=== PATIENT | male | born 1945 | race Caucasian/White ===

== ENCOUNTER → 2018-03-23 08:03 | Outpatient (CLI) | payer MEDICARE, OTHER, SELFPAY ==
--- NOTE | 2018-03-23 08:06 | DI.MRI.S_ITS ---
PROCEDURE: MR LUMBAR SPINE WO CON INDICATIONS: Lumbosacral spondylosis with right lower extremity radicular TECHNIQUE: Noncontrast sagittal T1 spin echo and T2 fast echo, sagittal STIR, axial T1 and T2 fast spin echo through the lumbar spine. In cases with scoliosis, additional coronal T2 fast spin echo may be performed. COMPARISON: [facility], CR, XR LUMBAR SPINE MIN 4V, 03/23/2018, 7:48. FINDINGS: Image quality: Excellent. Alignment and Curvature: There is minimal retrolisthesis at L1-L2 and mild retrolisthesis at L2-L3. Minimal retrolisthesis is seen at L3-L4. Bone Marrow: Marrow is of normal overall signal. No acute vertebral body compression fractures. Spinal Cord: Conus medullaris terminates at the T12-L1 level. Visualized cord demonstrates normal signal and size. Paraspinous Soft Tissues: No paravertebral masses. Left renal cysts are partially visualized. T12-L1: Normal appearance. L1-L2: The disc height is well-preserved. Loss of disc signal is seen at this level. Mild to moderate disc bulge is seen. There is moderate left-sided and minimal right-sided neural foraminal narrowing seen. Mild central canal narrowing is seen. L2-L3: Moderate loss of disc height is seen. Loss of disc signal is seen. Moderate disc bulge is seen. There is moderate left-sided and moderate to severe right-sided neural foraminal narrowing seen. There is a mild degree of mass effect seen upon the exiting right L2 nerve root. Moderate central canal narrowing is seen. L3-L4: Mild loss of disc height is seen. Loss of disc signal is seen. Moderate generalized disc bulge is seen. Mild facet joint hypertrophy is seen. There is at least moderate right-sided and moderate to severe left-sided neural narrowing seen. A degree of impingement can be seen upon the exiting left L3 nerve root. Moderate central canal narrowing is seen. L4-L5: Moderate loss of disc height is seen. Loss of disc signal is seen. Moderate disc bulge is seen, which is eccentric to the right. Moderate facet joint hypertrophy is seen. There is moderate left-sided and moderate to severe right-sided neural foraminal narrowing seen. There is impingement upon the exiting right L4 nerve root. Moderate central canal narrowing is seen. L5-S1: The disc height is well-preserved. Mild loss of disc signal is seen. Minimal disc bulge is seen. No significant neural foraminal or central canal narrowing are seen. IMPRESSION: Lumbar spine degenerative changes are seen, which are most prominent at the L2-L3 and L4-L5 levels. Dictated by: Houston Molina M.D. on 03/23/2018 at 9:23 Approved by: Houston Molina M.D. on 03/23/2018 at 9:29
--- NOTE | 2018-03-23 08:06 | DI.RAD.S_ITS ---
PROCEDURE: XR LUMBAR SPINE MIN 4V INDICATIONS: Lumbosacral spondylosis with right lower extremity radicular TECHNIQUE: 5 views of the lumbar spine were acquired. COMPARISON: None. FINDINGS: Bones: 5 nonrib-bearing vertebrae are present. There is grade I L1 on L2, L2 on L3, and L3 on L4 retrolisthesis. There is trace anterolisthesis of L4-5. There is diffuse intervertebral disc space narrowing, endplate sclerosis, osteophytosis, and facet sclerosis of the lumbar spine. No wedge compression deformities. Soft tissues: Overlying bowel gas pattern is normal. No suspicious soft tissue calcifications. Oblique images: No pars defects. IMPRESSION: Moderate to severe degenerative change. Multilevel spondylolisthesis. No spondylolysis. Dictated by: Myrna Ghotra M.D. on 03/23/2018 at 9:42 Approved by: Myrna Ghotra M.D. on 03/23/2018 at 9:43
== END ==
PROVIDERS: Family Provider Family Medicine; PCP Family Medicine; Visit Provider Physical Medicine & Rehabilitation
DX: M47.27 Other spondylosis with radiculopathy, lumbosacral region (principal); M51.16 Intervertebral disc disorders with radiculopathy, lumbar region; M43.15 Spondylolisthesis, thoracolumbar region; M43.16 Spondylolisthesis, lumbar region; Z96.651 Presence of right artificial knee joint
CPT/HCPCS: 72110; 72148

== ENCOUNTER → 2022-06-05 12:33 | Outpatient (CLI) | payer MEDICARE, OTHER, SELFPAY ==
[2022-06-05 14:26] LABS: Add Manual Diff / Slide Review NO; Basophils Absolute Auto 0 /uL (0-100); Basophils Percent Auto 0.5 % (0-2); Eosinophils Absolute Auto 100 /uL (0-450); Eosinophils Percent Auto 1.8 % (2-4); Hematocrit 43.9 % (41-53); Hemoglobin 14.7 g/dL (13.5-17.5); Lymphocytes Absolute Auto 1600 /uL (1100-4500); Mean Corpuscular HGB Conc 33.5 % (30-36); Mean Corpuscular Hemoglobin 31.9 PG (26-34); Mean Corpuscular Volume 95.4 fL (80-100); Monocytes Absolute Auto 600 /uL (0-900); Monocytes Percent Auto 8.9 % (3-14); Neutrophils Absolute Auto 4800 /uL (1500-7000); Neutrophils Percent Auto 66.8 % (50-75); Platelet Count 214 X10^3/uL (150-400); Red Cell Distribution Width 15.5 % (11.6-14.8); White Blood Cell Count 7.2 X10^3/uL (4.5-11.0)
[2022-06-05 14:59] LABS: Alanine Aminotransferase 28 IU/L (<50); Albumin 3.6 g/dL (3.5-5.0); Albumin Globulin Ratio 1.2 (1.0-2.8); Alkaline Phosphatase 52 U/L (38-126); Aspartate Aminotransferase 40 IU/L (17-59); BUN Creatinine Ratio 19.5 (6-22); Bilirubin Total 0.4 mg/dL (0.2-1.3); Blood Urea Nitrogen 25 mg/dL (9-20); Calcium 9.1 mg/dL (8.4-10.2); Carbon Dioxide 27 mmol/L (22-32); Chloride 102 mmol/L (98-107); Cholesterol 212 mg/dL (140-199); Estimated Glomerular Filt Rate 58 mL/min (>60); Globulin 3.1 g/dL (1.7-4.1); Glucose 90 mg/dL (80-110); HEMOLYSIS < 15 (0-50); Potassium 4.7 mmol/L (3.4-5.1); Sodium 137 mmol/L (137-145); Total Protein 6.7 g/dL (6.3-8.2); Triglycerides 75 mg/dL (35-150); Uric Acid 5.8 mg/dL (3.5-8.5)
[2022-06-05 15:09] LABS: HDL Cholesterol 118 mg/dL (40-60); LDL Cholesterol Calculated 79 mg/dL (<100)
[2022-06-05 15:29] LABS: Prostate Specific Antigen Scrn 2.39 ng/mL (0.1-4.0)
== END ==
PROVIDERS: Family Provider Family Medicine; PCP Family Medicine; Referring Provider Family Medicine; Visit Provider Family Medicine
DX: Z00.00 Encounter for general adult medical examination without abnormal findings (principal); M10.9 Gout, unspecified; N40.0 Benign prostatic hyperplasia without lower urinary tract symptoms; Z12.5 Encounter for screening for malignant neoplasm of prostate; Z13.6 Encounter for screening for cardiovascular disorders; E78.5 Hyperlipidemia, unspecified
CPT/HCPCS: 36415; 80053; 80061; 84443; 84550; 85025; G0103

== ENCOUNTER → 2022-11-20 08:42 | Outpatient (CLI) | payer MEDICARE, OTHER, SELFPAY ==
[2022-11-20 09:59] LABS: Alanine Aminotransferase 34 IU/L (<50); Albumin 3.9 g/dL (3.5-5.0); Albumin Globulin Ratio 1.2 (1.0-2.8); Alkaline Phosphatase 49 U/L (38-126); Aspartate Aminotransferase 46 IU/L (17-59); BUN Creatinine Ratio 17.5 (6-22); Bilirubin Total 0.8 mg/dL (0.2-1.3); Blood Urea Nitrogen 21 mg/dL (9-20); Calcium 8.7 mg/dL (8.4-10.2); Carbon Dioxide 29 mmol/L (22-32); Chloride 103 mmol/L (98-107); Estimated Glomerular Filt Rate > 60 mL/min (>60); Globulin 3.3 g/dL (1.7-4.1); Glucose 108 mg/dL (80-110); HEMOLYSIS 15 (0-50); Potassium 4.7 mmol/L (3.4-5.1); Sodium 136 mmol/L (137-145); Total Protein 7.2 g/dL (6.3-8.2); Uric Acid 5.5 mg/dL (3.5-8.5)
== END ==
PROVIDERS: Family Provider Family Medicine; PCP Family Medicine; Referring Provider Family Medicine; Visit Provider Family Medicine
DX: M1A.0790 Idiopathic chronic gout, unspecified ankle and foot, without tophus (tophi) (principal); N18.2 Chronic kidney disease, stage 2 (mild)
CPT/HCPCS: 36415; 80053; 84550

== ENCOUNTER → 2023-06-29 10:26 | Outpatient (CLI) | payer MEDICARE, OTHER, SELFPAY ==
[2023-06-29 11:01] LABS: Add Manual Diff / Slide Review NO; Basophils Absolute Auto 0 /uL (0-100); Basophils Percent Auto 0.3 % (0-2); Eosinophils Absolute Auto 200 /uL (0-450); Eosinophils Percent Auto 2.1 % (2-4); Hematocrit 45.6 % (41-53); Hemoglobin 15.4 g/dL (13.5-17.5); Lymphocytes Absolute Auto 1600 /uL (1100-4500); Lymphocytes Percent Auto 18.1 % (25-40); Mean Corpuscular HGB Conc 33.8 % (30-36); Mean Corpuscular Hemoglobin 32.6 PG (26-34); Mean Corpuscular Volume 96.4 fL (80-100); Monocytes Absolute Auto 600 /uL (0-900); Monocytes Percent Auto 7.1 % (3-14); Neutrophils Absolute Auto 6400 /uL (1500-7000); Neutrophils Percent Auto 72.4 % (50-75); Platelet Count 210 X10^3/uL (150-400); Red Blood Cell Count 4.73 X10^6/uL (4.5-5.9); Red Cell Distribution Width 15.2 % (11.6-14.8); White Blood Cell Count 8.8 X10^3/uL (4.5-11.0)
[2023-06-29 11:41] LABS: Alanine Aminotransferase 33 IU/L (<50); Albumin 3.9 g/dL (3.5-5.0); Albumin Globulin Ratio 1.1 (1.0-2.8); Alkaline Phosphatase 53 U/L (38-126); Aspartate Aminotransferase 42 IU/L (17-59); BUN Creatinine Ratio 16.2 (6-22); Bilirubin Total 0.6 mg/dL (0.2-1.3); Blood Urea Nitrogen 22 mg/dL (9-20); Calcium 9.7 mg/dL (8.4-10.2); Carbon Dioxide 27 mmol/L (22-32); Chloride 101 mmol/L (98-107); Cholesterol 227 mg/dL (140-199); Estimated Glomerular Filt Rate 54 mL/min (>60); Globulin 3.6 g/dL (1.7-4.1); Glucose 108 mg/dL (80-110); HDL Cholesterol 98 mg/dL (40-60); HEMOLYSIS < 15 (0-50); LDL Cholesterol Calculated 105 mg/dL (<100); Potassium 4.5 mmol/L (3.4-5.1); Sodium 135 mmol/L (137-145); Total Protein 7.5 g/dL (6.3-8.2); Triglycerides 120 mg/dL (35-150); Uric Acid 5.4 mg/dL (3.5-8.5)
[2023-06-29 12:09] LABS: Prostate Specific Antigen Scrn 2.98 ng/mL (0.1-4.0)
[2023-06-29 12:10] LABS: TSH w/ Reflex to FT4 3.59 uIU/mL (0.47-4.68)
== END ==
PROVIDERS: Family Provider Family Medicine; PCP Family Medicine; Referring Provider Family Medicine; Visit Provider Family Medicine
DX: Z00.00 Encounter for general adult medical examination without abnormal findings (principal); M1A.0790 Idiopathic chronic gout, unspecified ankle and foot, without tophus (tophi); N18.9 Chronic kidney disease, unspecified; Z12.5 Encounter for screening for malignant neoplasm of prostate; N13.8 Other obstructive and reflux uropathy; N40.1 Benign prostatic hyperplasia with lower urinary tract symptoms; N18.2 Chronic kidney disease, stage 2 (mild); Z96.651 Presence of right artificial knee joint; M10.9 Gout, unspecified; N40.0 Benign prostatic hyperplasia without lower urinary tract symptoms
CPT/HCPCS: 36415; 80053; 80061; 84443; 84550; 85025; G0103

== ENCOUNTER → 2023-10-12 08:00 | Outpatient (CLI) | payer MEDICARE, SELFPAY ==
--- NOTE | 2023-10-12 08:02 | DI.RAD.S_ITS ---
PROCEDURE: XR LUMBAR SPINE MIN 4V INDICATIONS: low back pain TECHNIQUE: 5 views of the lumbar spine were acquired, including bilateral oblique views. COMPARISON: MR, MR LUMBAR SPINE WO CON, 03/23/2018, 8:34. [facility], CR, XR LUMBAR SPINE MIN 4V, 03/23/2018, 7:48. FINDINGS: Bones: 5 nonrib-bearing vertebrae are present. There is moderate levoscoliosis with the apex at L4. Grade 1 retrolisthesis of L2 on L3. No vertebral body compression fractures. No suspicious bony lesions. Multilevel degenerative disc disease, moderate to severe at L2-L3, L3-L4 and L4-L5. Mild at T12-L1 and L1-L2. Severe facet arthropathy at L2-L3, L3-L4 and L4-L5 and L5-S1. Soft tissues: Overlying bowel gas pattern is normal. Vascular calcifications consistent with atherosclerosis. Oblique images: No pars defects. IMPRESSION: 1. [id number] degenerative disc and facet disease in lumbar spine. 2. Scoliosis. 3. Grade 1 retrolisthesis of L2 on L3. 4. No pars defects. Dictated by: Kylie Myers M.D. on 10/12/2023 at 16:09 Approved by: Kylie Myers M.D. on 10/12/2023 at 16:11
--- NOTE | 2023-10-12 08:02 | DI.RAD.S_ITS ---
PROCEDURE: XR HIP W PEL IF DONE LT 2V INDICATIONS: left hip pain TECHNIQUE: AP pelvis with lateral view(s) of the left hip(s). COMPARISON: None. FINDINGS: Bones: No fractures or dislocations. Pelvic ring appears intact. No suspicious bony lesions. Mild degenerative joint disease in hips and sacroiliac joints bilaterally. Soft tissues: The visualized bowel gas pattern is normal. No suspicious soft tissue calcifications. IMPRESSION: Mild degenerative joint disease. Dictated by: Kylie Myers M.D. on 10/12/2023 at 16:21 Approved by: Kylie Myers M.D. on 10/12/2023 at 16:22
== END ==
PROVIDERS: Family Provider Family Medicine; PCP Family Medicine; Referring Provider Anesthesiology; Visit Provider Anesthesiology
DX: M16.0 Bilateral primary osteoarthritis of hip (principal); M46.1 Sacroiliitis, not elsewhere classified; M70.62 Trochanteric bursitis, left hip; M25.552 Pain in left hip; M48.061 Spinal stenosis, lumbar region without neurogenic claudication; M51.16 Intervertebral disc disorders with radiculopathy, lumbar region; M51.17 Intervertebral disc disorders with radiculopathy, lumbosacral region; M47.26 Other spondylosis with radiculopathy, lumbar region; M47.27 Other spondylosis with radiculopathy, lumbosacral region; M43.16 Spondylolisthesis, lumbar region; M41.26 Other idiopathic scoliosis, lumbar region
CPT/HCPCS: 72110; 73502; 99214

== ENCOUNTER → 2023-11-13 16:14 | Outpatient (CLI) | payer MEDICARE, SELFPAY ==
--- NOTE | 2023-11-13 16:15 | DI.MRI.S_ITS ---
PROCEDURE: MR LUMBAR SPINE WO CON INDICATIONS: lumbar stenosis TECHNIQUE: Noncontrast sagittal T1 spin echo and T2 fast echo, sagittal STIR, and T2 fast spin echo through the lumbar spine. In cases with scoliosis, additional coronal T2 fast spin echo may be performed. COMPARISON: [facility], MR, MR LUMBAR SPINE WO CON, 03/23/2018, 8:34. FINDINGS: Image quality: Excellent. Alignment and Curvature: Mild dextroscoliosis of the lumbar spine, centered at L2-3. Mild retrolisthesis L1 on L2, L2-L3 and L3-L4. Grade 1 anterolisthesis of L4 on L5. Bone Marrow: Multilevel fibrofatty endplate change. Mild fibrovascular end plate change at L1-2 and L2-3. Spinal Cord: Conus medullaris terminates at the L1 level. Visualized cord demonstrates normal signal and size. Paraspinous Soft Tissues: No paravertebral masses. T12-L1: Unremarkable L1-2: Disc bulge. Mild bilateral facet arthropathy. Mild central canal stenosis. No neural from stenosis was not L2-3: Disc bulge. Mild bilateral facet arthropathy. Mild central canal stenosis. Mild right and left neural stenosis. L3-4: Disc bulge. Mild bilateral facet arthropathy. Mild central canal stenosis. Moderate left neural from stenosis. No right neural stenosis. L4-5: Disc bulge. Moderate right, mild left facet arthropathy. Moderate central canal stenosis. Moderate right neural foraminal stenosis. No left neural foraminal stenosis. L5-S1: No central canal stenosis. No neural foraminal stenosis. Visualized sacrum is unremarkable. No abdominal aortic aneurysm. Left renal cysts. IMPRESSION: Multilevel degenerative changes of the lumbar spine, most pronounced at L4-5, where there is moderate central canal stenosis and moderate right neural from stenosis, grossly unchanged from prior exam. Dictated by: Sarah Stanton M.D. on 11/13/2023 at 17:03 Approved by: Sarah Stanton M.D. on 11/13/2023 at 17:14
== END ==
PROVIDERS: Family Provider Family Medicine; PCP Family Medicine; Referring Provider Physical Medicine & Rehabilitation; Visit Provider Physical Medicine & Rehabilitation
DX: M47.816 Spondylosis without myelopathy or radiculopathy, lumbar region (principal); M48.061 Spinal stenosis, lumbar region without neurogenic claudication
CPT/HCPCS: 72148

== ENCOUNTER 2023-12-15 09:32 | Outpatient (CLI) | payer MEDICARE, SELFPAY ==
[2023-12-15] VITALS (9 sets, daily range): BP systolic 110–139; BP diastolic 57–65; PULSE 50–62; RESP 14–21; TEMP 36.2; O2SAT 95–99
--- NOTE | 2023-12-15 10:15 | DI.RAD.S_ITS ---
PROCEDURE: PAIN L INTERLAMINAR/CAUDAL INJ INDICATIONS: L4-5 translaminar TJ COMPARISON: None. FINDINGS: Fluoroscopic spot filming was performed to verify placement of spinal needles at the L4-5 level(s), as labeled on the films. Appropriate location(s) of the needle tip(s) was confirmed by injection of iodinated contrast. IMPRESSION: Fluoroscopic guidance utilized for an epidural injection at L4-5. Dictated by: Gato Rodriguez M.D. on 12/15/2023 at 12:14 Approved by: Gato Rodriguez M.D. on 12/15/2023 at 12:14
[2023-12-15] MEDS: MIDAZOLAM 2 MG/2 ML VIAL 1 MG IV ×2 (10:39→10:44)
[2023-12-15] MEDS: BUPIVACAINE 0.25% (PF) VIAL 2 ML INJ (10:43)
[2023-12-15] MEDS: iopamidoL 15 ML VIAL 3 ML INJ (10:43)
[2023-12-15] MEDS: BETAMETHASONE 30 MG/5 ML MDV 6 MG INJ (10:44)
[2023-12-15] MEDS: DEXAMETHASONE 10 MG/ML VIAL INJ (10:44)
--- NOTE | 2023-12-15 10:54 | P.PCN_ITS ---
Date/Time/Diagnoses Date of procedure: 12/15/23 Time of procedure: 10:54 Pre-procedure diagnosis: 1. HNP WITH RADICULAR FEATURES, 2. MULTILEVEL CENTRAL STENOSIS, Post-procedure diagnosis: same Procedure Notes Procedure: 1. FLUOROSCOPICALLY GUIDED CONTRAST CONTROLLED INTERLAMINAR EPIDURAL STEROID INJECTION -L4/5 Indications: Yony is referred by Dr. Chung for treatment of Bilateral Foraminal Stenosis R>L LE symptoms. Physician: Maury Hodgson Total Fluoroscopy time (seconds): 8 Total sedation minutes: 10 Complications: none Procedure in detail & Post-procedure care: FINDINGS Multilevel Central Spinal Stenosis with Nerve Root Compression DESCRIPTION OF PROCEDURE Fluoroscopically guided, contrast-controlled L4/5 translaminar epidural steroid injection. Following review of allergy and review of potential side effects and complications, including, but not necessarily limited to, infection, allergic reaction, local tissue breakdown, temporary as well as permanent nerve injury, paralysis, stroke and possible , the patient indicated that the patient understood and agreed to proceed. An informed consent document was signed by the patient, witnessed by a nurse, and placed in the patient's chart. Additionally, other treatment options including modalities, medications, and physical therapy were reviewed with the patient. After review of previous anaesthesic history and IV conscious sedation the patient was deemed safe to proceed with today?s procedure with IV conscious sedation as ASA class II designation. Safety time-out was performed to confirm patient ID, procedure to be performed and site of procedure. IV sedation was accomplished with a combination of 2mg of Versed was administered by the RN after DO order, titrated to patient comfort during the course of the procedure while the patient remained responsive to all verbal commands In the prone position, following sterile prep and drape of the lumbar region, the L4/5 translaminar space was identified fluoroscopically. The skin was anesthetized via a 25-gauge, 1.5inch needle with 1% lidocaine solution. At this point, a 22-gauge short bevel spinal needle was atraumatically introduced and advanced under fluoroscopic guidance into the region of the L4/5 translaminar space. Depth was confirmed on lateral view. Radiological data, including multiple fluoroscopic views of the lumbar spine, reveal a spinal needle at the L4/5 translaminar space. Lateral views then show placement of the needle in the epidural space. Subsequent views show contrast material flowing superiorly and inferiorly in the epidural space. No vascular or intrathecal uptake is observed. At this point, using loss of resistance technique with saline and air, the epidural space was entered. This was confirmed following negative aspiration with injection of approximately 1.5cc of Isovue 200, showing excellent epidural flow without vascular or intrathecal uptake. At this point, 1cc of 1% lidocaine solution combined with 2cc or 10mg of dexamethasone and 6mg betamethasone was injected without incident. The patient tolerated the procedure well without signs or symptoms of complications prior to transfer to the recovery area continued monitoring without incident. The patient was then transferred to the recovery area where they were observed for an appropriate period of time after the injection. The patient reported a VAS score of 8 prior to the procedure and a post- procedure VAS of 1. POST OP INSTRUCTIONS The patient was provided a Pain Log to continue to record their response to the target-specific procedure prior to follow-up visit with their referring physician. Additionally, specific post-injection care instructions and a contact number to our office were provided if concerns arise regarding possible complications associated with the procedure are suspected.
== END 2023-12-15 11:20 | disposition home or self-care (01) ==
PROVIDERS: Family Provider Family Medicine; PCP Family Medicine; Referring Provider Physical Medicine & Rehabilitation; Visit Provider Physical Medicine & Rehabilitation
DX: M51.16 Intervertebral disc disorders with radiculopathy, lumbar region (principal); M48.061 Spinal stenosis, lumbar region without neurogenic claudication
CPT/HCPCS: 62323; 99152; J0702; J1100; J2250; J3490

== ENCOUNTER 2024-01-04 10:19 | Emergency (ER) | payer MEDICARE, SELFPAY ==
[2024-01-04 10:38] VITALS: BP 137/64; PULSE 54; RESP 16; TEMP 36.1; O2SAT 99; BMI 25.8
--- NOTE | 2024-01-04 11:08 | DI.US.S_ITS ---
PROCEDURE: US PERIPH VENOUS LOW EXTREM RT INDICATIONS: EDEMA TECHNIQUE: Real-time imaging, as well as color and pulse Doppler interrogation, were performed of the lower extremity deep veins from the inguinal ligament to the popliteal fossa, with documentation of the visualized calf veins. COMPARISON: None. FINDINGS: Partially occlusive deep venous thrombosis can be seen within the common femoral vein. There is occlusive thrombus seen throughout the femoral vein and the popliteal vein. The peroneal veins are not well seen, secondary to edema. IMPRESSION: Extensive right lower extremity deep venous thrombosis. Dictated by: Houston Molina M.D. on 01/04/2024 at 10:44 Approved by: Houston Molina M.D. on 01/04/2024 at 10:46
[2024-01-04 13:32] VITALS: BP 150/67; PULSE 60; RESP 16; O2SAT 100
--- NOTE | 2024-01-04 14:11 | ED.EXTPRO ---
HPI - Extremity Problem <Cande Guallpa PA-C - Last Filed: 01/04/24 14:39> General Chief complaint: Extremity Problem,Nontraumatic Stated complaint: symptoms of dvt Time Seen by Provider: 01/04/24 13:36 Source: patient Mode of arrival: Ambulatory History of Present Illness HPI Narrative: 78-year-old male with past medical history hyperlipidemia, BPH presents to the ED with 1-2 weeks of right leg swelling. Patient states that he had some eye surgery on the 16 of January, has been on a couple of long flights, has been more sedentary due to lower back pain. 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 Patient is currently not on any blood thinners. Patient does take 81 mg of aspirin daily. Patient denies any significant leg discomfort other than the swelling. No numbness, tingling, weakness. Patient denies chest pain, shortness of breath, nausea, vomiting, lightheadedness, dizziness, syncope. Related Data Home Medications Medication Instructions Recorded Confirmed aspirin 81 mg tablet,delayed 81 mg PO DAILY 02/26/18 11/18/23 release (Adult Low Dose Aspirin) cholecalciferol (vitamin D3) PO 06/05/22 11/18/23 vitamin B complex (B 1 tab PO DAILY 06/05/22 11/18/23 Complex-Vitamin B12 tablet) diphenhydramine 25 2 tab PO DAILY Sleep 11/20/22 11/18/23 mg-acetaminophen 500 mg tablet (Tylenol PM Extra Strength) calcium carbonate (Calcium 600) 600 mg PO DAILY 06/29/23 11/18/23 magnesium carb,citrate,oxide mg PO 06/29/23 11/18/23 (Magnesium Complex) Previous Rx's Medication Instructions Recorded colchicine 0.6 mg tablet 0.6 mg PO BID PRN Gout attack #30 06/29/23 tabs finasteride 5 mg tablet 5 mg PO DAILY #90 tabs 06/29/23 allopurinol 300 mg tablet 300 mg PO DAILY #90 tabs 09/14/23 gabapentin 100 mg capsule 100 mg PO .COMPLEX #90 caps 10/12/23 methylprednisolone 4 mg tablets in See Rx Instructions PO PER PKG DIR 10/12/23 a dose pack (Medrol (Dano)) radiculopathy #21 ea apixaban 5 mg (74 tabs) tablets in See Rx Instructions PO .COMPLEX 01/04/24 a dose pack (Eliquis DVT-PE Treat #74 ea 30D Start) apixaban 5 mg (74 tabs) tablets in See Rx Instructions PO .COMPLEX 01/04/24 a dose pack (Eliquis DVT-PE Treat #74 ea 30D Start) Allergies Allergy/AdvReac Type Severity Reaction Status Date / Time No Known Drug Allergies Allergy Verified 11/18/23 10:04 Review of Systems <Cande Guallpa PA-C - Last Filed: 01/04/24 14:39> Constitutional Constitutional: Denies chills, Denies fatigue, Denies fever(s), Denies frequent falls, Denies lethargy and Denies weakness Eyes Eyes: Denies change in vision, Denies eye discharge, Denies irritation and Denies loss of vision ENT Ears, Nose, Mouth, and Throat: Denies change in voice, Denies dizziness, Denies neck pain, Denies sore throat and Denies throat swelling Cardiovascular Cardiovascular: Denies chest pain, Denies irregular heart rhythm, Denies lightheadedness, Denies palpitations, Denies dyspnea, Denies dyspnea on exertion and Denies orthopnea Respiratory Respiratory: Denies cough, Denies dyspnea, Denies dyspnea on exertion and Denies wheezing Gastrointestinal Gastrointestinal: Denies abdominal pain, Denies change in bowel habits, Denies diarrhea, Denies nausea and Denies vomiting Musculoskeletal Musculoskeletal: Denies neck pain and Denies numbness Comments: Right leg swelling Integumentary/Breasts Skin/Breast: Denies pruritus, Denies erythema, Denies rash and Denies wounds Neurologic Neurologic: Denies behavioral changes, Denies confusion, Denies dizziness, Denies frequent falls, Denies loss of vision, Denies numbness and Denies weakness Psychiatric Psychiatric: Denies anxiety, Denies behavioral changes, Denies confusion, Denies depression, Denies homicidal ideation and Denies suicidal ideation Endocrine Endocrine: Denies fatigue, Denies flushing and Denies palpitations Hematologic/Lymphatic Hematologic/Lymphatic: Denies easy bruising Allergic/Immunologic Allergic/Immunologic: Denies urticaria, Denies throat swelling and Denies wheezing Patient History <Cande Guallpa PA-C - Last Filed: 01/04/24 14:39> Medical History Lumbar facet arthropathy Scoliosis Lumbar spondylosis Lumbar degenerative disc disease Greater trochanteric bursitis of left hip Lumbar radiculopathy Groin strain Mixed hyperlipidemia Medicare annual wellness visit, subsequent Encounter for wellness examination in adult Insomnia Chronic kidney disease Actinic keratosis Preventative health care Gout BPH (benign prostatic hyperplasia) Surgical History History of total right knee replacement Social History Smoking Status: Never smoker alcohol intake: current substance use type: does not use Smoking Status: Never smoker alcohol intake frequency: 0-2 drinks per day Alcohol type: hard liquor Substance Use Type: does not use Exam <Cande Guallpa PA-C - Last Filed: 01/04/24 14:39> Narrative Exam Narrative: Const General:?cooperative, healthy appearing and comfortable HENMT Head:?normal to inspection Ears:?hearing grossly normal bilaterally Nose:?external nose normal Face and sinus:?normal facial exam and sinuses nontender Mouth:?oral mucosae normal Throat:?posterior oropharynx normal Eyes General:?appearance normal, both eyes and all related structures Neck Neck:?normal visual inspection and no lymphadenopathy noted Resp Effort & Inspection:?normal respiratory effort Auscultation:?clear to auscultation bilaterally Cardio Rate:?regular rate Rhythm:?regular rhythm Musculoskeletal There is some swelling of the right lower leg. No bruising, deformities, erythema. Strength and sensation is intact. Patient is neurovascularly intact. Able to bear weight and walk. Gait normal Neuro General:?patient alert, patient awake and patient oriented x3 Initial Vital Signs Initial Vital Signs: Vital Signs Temperature 97.0 F L 01/04/24 10:38 Pulse Rate 54 L 01/04/24 10:38 Respiratory Rate 16 01/04/24 10:38 Blood Pressure 137/64 01/04/24 10:38 Pulse Oximetry 99 01/04/24 10:38 Oxygen Delivery Method Room Air 01/04/24 10:38 <Telma Contreras DO - Last Filed: 01/05/24 07:42> Initial Vital Signs Initial Vital Signs: Vital Signs Temperature 97.0 F L 01/04/24 10:38 Pulse Rate 54 L 01/04/24 10:38 Respiratory Rate 16 01/04/24 10:38 Blood Pressure 137/64 01/04/24 10:38 Pulse Oximetry 99 01/04/24 10:38 Oxygen Delivery Method Room Air 01/04/24 10:38 Course <Cande Guallpa PA-C - Last Filed: 01/04/24 14:39> Orders Ordered: Discontinued Medications Apixaban (Apixaban 5 Mg Tablet) 10 mg PO NOW ONE Stop: 01/04/24 14:21 Last Admin: 01/04/24 14:35 Dose: 10 mg Documented By: SUSAN Vital Signs Vital signs: Vital Signs - 8 hr 01/04/24 10:38 01/04/24 13:32 Temperature 97.0 F L Pulse Rate 54 L 60 Respiratory Rate 16 16 Blood Pressure 137/64 150/67 H Pulse Oximetry 99 100 Oxygen Delivery Method Room Air Room Air <Telma Contreras DO - Last Filed: 01/05/24 07:42> Orders Ordered: Discontinued Medications Apixaban (Apixaban 5 Mg Tablet) 10 mg PO NOW ONE Stop: 01/04/24 14:21 Last Admin: 01/04/24 14:35 Dose: 10 mg Documented By: SUSAN Vital Signs Vital signs: Vital Signs - 8 hr 01/04/24 10:38 01/04/24 13:32 Temperature 97.0 F L Pulse Rate 54 L 60 Respiratory Rate 16 16 Blood Pressure 137/64 150/67 H Pulse Oximetry 99 100 Oxygen Delivery Method Room Air Room Air MDM - Extremity (Nontraumatic) <Cande Guallpa PA-C - Last Filed: 01/04/24 14:39> MDM Narrative Medical decision making narrative: 78-year-old male with past medical history hyperlipidemia, BPH presents to the ED with 1-2 weeks of right leg swelling. Ultrasound of the right lower extremity was obtained which shows extensive right lower extremity deep venous thrombosis. There is partially occlusive DVT within the common femoral vein. There is occlusive thrombus seen throughout the femoral vein and the popliteal vein. Peroneal veins are not visualized, secondary to edema. Discussed findings with patient. Patient started on Eliquis. First dose given in the ED. recommend follow-up with his PCP Dr. Chung as soon as possible for further evaluation and extension of the prescription as appropriate. ED return precautions discussed with patient. Patient verbalized understanding. Medical records reviewed: Yes Discharge Plan Departure Patient Disposition: Home Clinical Impression: DVT (deep venous thrombosis) Qualifiers: DVT location: lower extremity Affected thrombotic vein of extremity: femoral Chronicity: acute Laterality: right Qualified Code(s): I82.411 - Acute embolism and thrombosis of right femoral vein Instructions: DI for Deep Vein Thrombosis Activity Restrictions/Additional Instructions: You were evaluated in the ED today for right leg swelling. The ultrasound shows extensive right lower leg deep venous thrombosis. You are being prescribed Eliquis which is a blood thinner to be taken for the next few months. You are being given your 1st dose in the ED today. Today's prescription will be for a month. Please follow-up with your PCP Dr. Chung as soon as possible so he can re-evaluate and extend your prescription as needed. Return to the ED if you note any worsening symptoms, shortness of breath, chest pain. The blood thinners make you more prone to bleeding and therefore you were advised to exercise fall precautions and return to the ED if you experience any falls or head injuries. Prescriptions: New Eliquis DVT-PE Treat 30D Start 5 mg (74 tabs) tablets,dose pack See Rx Instructions .ROUTE .COMPLEX Qty: 74 0RF Rx Instructions: orally per package directions Eliquis DVT-PE Treat 30D Start 5 mg (74 tabs) tablets,dose pack See Rx Instructions .ROUTE .COMPLEX Qty: 74 0RF Rx Instructions: orally per package directions No Action allopurinol 300 mg tablet 300 mg PO DAILY Qty: 90 1RF vitamin B complex [B Complex-Vitamin B12] Tablet 1 tab PO DAILY cholecalciferol (vitamin D3) PO calcium carbonate [Calcium 600] 600 mg calcium (1,500 mg) tablet 600 mg PO DAILY Magnesium Complex 300 mg magnesium tablet PO colchicine 0.6 mg tablet 0.6 mg PO BID PRN (Reason: Gout attack) Qty: 30 1RF Rx Instructions: Take for no more than 3 days in a row finasteride 5 mg tablet 5 mg PO DAILY Qty: 90 3RF diphenhydramine-acetaminophen [Tylenol PM Extra Strength] 25-500 mg tablet 2 tab PO DAILY aspirin [Adult Low Dose Aspirin] 81 mg tablet,delayed release (DR/EC) 81 mg PO DAILY gabapentin 100 mg capsule 100 mg PO .COMPLEX Qty: 90 2RF Rx Instructions: 1 PO QHS x3 days If tolerated, 1 PO BID x3 days If tolerated, 1 PO TID methylprednisolone [Medrol (Dano)] 4 mg tablets,dose pack See Rx Instructions PO PER PKG DIR Qty: 21 1RF Rx Instructions: PO PER PKG DIR Referrals: Kailash Chung DO [Primary Care Provider] - Stand Alone Forms: Patient Portal/API ED Sign-out <Telma Contreras DO - Last Filed: 01/05/24 07:42> Cosign ED Attending Cosignature Attestation: I was immediately available in the department for consultation.
[2024-01-04] MEDS: APIXABAN 5 MG TABLET 10 MG PO (14:35)
== END 2024-01-04 14:37 | disposition home or self-care (01) ==
PROVIDERS: Emergency Provider Student in an Organized Health Care Education/Training Program; Family Provider Family Medicine; PCP Family Medicine
DX: I82.411 Acute embolism and thrombosis of right femoral vein (principal); I82.431 Acute embolism and thrombosis of right popliteal vein
CPT/HCPCS: 93971; 99283

== ENCOUNTER 2024-05-19 16:07 | Emergency (ER) | payer MEDICARE, SELFPAY ==
[2024-05-19 16:10] VITALS: BP 118/57; PULSE 18; RESP 96; TEMP 36.3; O2SAT 98; BMI 25.8
--- NOTE | 2024-05-19 16:51 | DI.US.S_ITS ---
PROCEDURE: US PERIP VENOUS LOW EXTREM RT INDICATIONS: KNEE SWELLING TECHNIQUE: Real-time imaging, as well as color and pulse Doppler interrogation, were performed of the lower extremity deep veins from the inguinal ligament to the popliteal fossa, with documentation of the visualized calf veins. COMPARISON: [facility], , [facility] VENOUS LOW EXTREM RT, 01/04/2024, 11:17. FINDINGS: There is occlusive thrombus seen within the femoral vein within its proximal and mid portions. Distally, there is nonocclusive thrombus seen within the femoral vein. Nonocclusive thrombus is seen within the popliteal vein. IMPRESSION: Extensive right lower extremity deep venous thrombosis can be seen, with the burden of thrombus decreased compared to the prior examination. Note: Concordant preliminary findings given by the purchasing assistant upon the completion of the examination to Angelica Farr. Dictated by: Houston Molina M.D. on 05/19/2024 at 17:02 Approved by: Houston Molina M.D. on 05/19/2024 at 17:06
--- NOTE | 2024-05-19 17:17 | ED.EXTPRO ---
HPI - Extremity Problem <Angelica Farr PA-C - Last Filed: 05/19/24 18:51> General Chief complaint: Extremity Problem,Nontraumatic Stated complaint: sent from [facility]- r/o DVT? Time Seen by Provider: 05/19/24 17:06 Source: patient Mode of arrival: Ambulatory History of Present Illness HPI Narrative: Patient is a 78-year-old male brought in the emergency department by his . Told to present to the emergency department by Dr. Chung's nurse and Dr. Chung for evaluation of right lower extremity rule out DVT. However, patient currently has a right lower extremity DVT, he currently is on Eliquis and being treated for DVT.. Patient went out and played 5 holes of golf, around the 5th hole he started to have some discomfort and pain in the right popliteal area, he finished 9 holes of golf, went home, sat down kind of on the recliner, and had worsening discomfort and pain in the right popliteal area of the right quad and hamstring area kind of swelled up he had a lot of discomfort and pain, and some numbness on the lateral aspect of the quad and hamstring, he reached out to Dr. Chung's office they suggested he called [phone] came by the time 911 got to the patient's home the symptoms pretty much had resolved, and the patient decided that he was not going to be brought to the hospital by ambulance and felt like he could bring himself to the emergency room department so he drove himself to the emergency room department and now has presented to the emergency department where his doctor is just around the corner in his private office. Patient is under the impression that Dr. Chung is going to call and order tests for him as well as make arrangements for the test to be done. I have advised the patient that an ultrasound has been ordered, the patient is slightly disappointed that no other chest besides the ultrasound is going to be ordered. Currently this time the patient's has walked down to Dr. Chung's office to speak with Dr. Chung. The patient has no other further complaints. He denies chest pain, shortness of breath, weakness, dizziness, lightheadedness, he has had no recent injury, trauma, fall. Last time he played golf was 5 days ago. He currently has some minimal discomfort in the left lateral quadriceps and hamstring area. Related Data Home Medications Medication Instructions Recorded Confirmed cholecalciferol (vitamin D3) PO 06/05/22 01/13/24 vitamin B complex (B 1 tab PO DAILY 06/05/22 01/13/24 Complex-Vitamin B12 tablet) diphenhydramine 25 2 tab PO DAILY Sleep 11/20/22 01/13/24 mg-acetaminophen 500 mg tablet (Tylenol PM Extra Strength) calcium carbonate (Calcium 600) 600 mg PO DAILY 06/29/23 01/13/24 magnesium carb,citrate,oxide mg PO 06/29/23 01/13/24 (Magnesium Complex) Previous Rx's Medication Instructions Recorded colchicine 0.6 mg tablet 0.6 mg PO BID PRN Gout attack #30 06/29/23 tabs finasteride 5 mg tablet 5 mg PO DAILY #90 tabs 06/29/23 gabapentin 100 mg capsule 100 mg PO .COMPLEX #90 caps 10/12/23 apixaban 5 mg (74 tabs) tablets in See Rx Instructions PO .COMPLEX 01/04/24 a dose pack (TrialScope DVT-PE Treat #74 ea 30D Start) apixaban 5 mg tablet 5 mg PO BID #180 tabs 01/22/24 allopurinol 300 mg tablet 300 mg PO DAILY #90 tabs 03/21/24 Allergies Allergy/AdvReac Type Severity Reaction Status Date / Time No Known Drug Allergies Allergy Verified 05/19/24 16:15 Review of Systems <Angelica Farr PA-C - Last Filed: 05/19/24 18:51> Review of Systems Narrative: Negative except as above Musculoskeletal Comments: Patient had some right lower leg swelling that now has receded, Patient History <Angelica Farr PA-C - Last Filed: 05/19/24 18:51> Medical History Lumbar facet arthropathy Scoliosis Lumbar spondylosis Lumbar degenerative disc disease Greater trochanteric bursitis of left hip Lumbar radiculopathy Groin strain Mixed hyperlipidemia Medicare annual wellness visit, subsequent Encounter for wellness examination in adult Insomnia Chronic kidney disease Actinic keratosis Preventative health care Gout BPH (benign prostatic hyperplasia) Surgical History History of total right knee replacement Social History Smoking Status: Never smoker alcohol intake: current substance use type: does not use Smoking Status: Never smoker alcohol intake frequency: 0-2 drinks per day Alcohol type: hard liquor Substance Use Type: does not use Exam <Angelica Farr PA-C - Last Filed: 05/19/24 18:51> Initial Vital Signs Initial Vital Signs: Vital Signs Temperature 97.4 F L 05/19/24 16:10 Pulse Rate 18 L 05/19/24 16:10 Respiratory Rate 96 H 05/19/24 16:10 Blood Pressure 118/57 L 05/19/24 16:10 Pulse Oximetry 98 05/19/24 16:10 Oxygen Delivery Method Room Air 05/19/24 16:10 Reviewed Const General: cooperative, healthy appearing, comfortable, well developed, well groomed, No acute distress, No in distress and No anxious Nutritional Appearance: average body habitus and well nourished Eyes General: Yes appearance normal, both eyes and all related structures Pupils: PERRL EOM: EOM intact bilaterally Resp Auscultation: clear to auscultation bilaterally, no crackles, no rales, no rhonchi and no wheezes Cardio Rate: regular rate Rhythm: regular rhythm Heart Sounds: S1 normal, S2 normal, no click, no gallops, no murmurs and no rubs Skin Other: No erythema, no redness, no signs of cellulitis, no signs or symptoms of thrombophlebitis, patient does have varicosities there noninfected, they are not red, they are not irritated. Neuro Other: Cranial nerves are grossly intact Extrem Other: The left thigh is 18 in, the left calf is 15.5 The right thigh is 18.5 in and the right calf is 14.5 in Range of motion, strength, pulses, cap refill preserved in the upper and lower extremities. Currently at this time I do not appreciate any soft tissue swelling, no erythema, no signs of infection, there is no noticeable soft tissue swelling on exam. Psych Other: Appearance, mental status, speech, movement, mood, affect, attitude, thought process, thought content, judgment all within normal limits <Judith Kumar MD - Last Filed: 05/19/24 18:57> Initial Vital Signs Initial Vital Signs: Vital Signs Temperature 97.4 F L 05/19/24 16:10 Pulse Rate 18 L 05/19/24 16:10 Respiratory Rate 96 H 05/19/24 16:10 Blood Pressure 118/57 L 05/19/24 16:10 Pulse Oximetry 98 05/19/24 16:10 Oxygen Delivery Method Room Air 05/19/24 16:10 Scores <Angelica Farr PA-C - Last Filed: 05/19/24 18:51> GCS Citation: 15 Course <Angelica Farr PA-C - Last Filed: 05/19/24 18:51> Orders Ordered: ED Orders 05/19/24 16:51 US periph venous low extrem rt Stat Vital Signs Vital signs: Vital Signs - 8 hr 05/19/24 16:10 05/19/24 18:18 Temperature 97.4 F L Pulse Rate 18 L 59 L Respiratory Rate 96 H 18 Blood Pressure 118/57 L 124/60 Pulse Oximetry 98 98 Oxygen Delivery Method Room Air Reviewed <Judith Kumar MD - Last Filed: 05/19/24 18:57> Orders Ordered: ED Orders 05/19/24 16:51 US periph venous low extrem rt Stat Vital Signs Vital signs: Vital Signs - 8 hr 05/19/24 16:10 05/19/24 18:18 Temperature 97.4 F L Pulse Rate 18 L 59 L Respiratory Rate 96 H 18 Blood Pressure 118/57 L 124/60 Pulse Oximetry 98 98 Oxygen Delivery Method Room Air MDM - Extremity (Nontraumatic) <Angelica Farr PA-C - Last Filed: 05/19/24 18:51> Imaging Data US - DVT: Radiologist's Impression: [address] [address] Ultrasound Report Signed Patient: Yony Gramajo MR#: [id number] : 1945 Acct:[id number] Age/Sex: 78 / M Date of Service: 05/19/24 Loc: ED Accession Number: [id number] Procedure: US periph venous low extrem rt Ordering Provider: Angelica Farr PA-C PROCEDURE: US PERIPH VENOUS LOW EXTREM RT INDICATIONS: KNEE SWELLING TECHNIQUE: Real-time imaging, as well as color and pulse Doppler interrogation, were performed of the lower extremity deep veins from the inguinal ligament to the popliteal fossa, with documentation of the visualized calf veins. COMPARISON: [facility], , [facility] VENOUS LOW EXTREM RT, 01/04/2024, 11:17. FINDINGS: There is occlusive thrombus seen within the femoral vein within its proximal and mid portions. Distally, there is nonocclusive thrombus seen within the femoral vein. Nonocclusive thrombus is seen within the popliteal vein. IMPRESSION: Extensive right lower extremity deep venous thrombosis can be seen, with the burden of thrombus decreased compared to the prior examination. Note: Concordant preliminary findings given by the websphere message broker developer upon the completion of the examination to Angelica Farr. Dictated by: Houston Molina M.D. on 05/19/2024 at 17:02 Approved by: Houston Molina M.D. on 05/19/2024 at 17:06 MDM Narrative Medical decision making narrative: 78-year-old male sent here by his primary care doctor to rule out DVT. However, currently at this time the patient has a right lower extremity DVT, currently on Eliquis. Patient went out and golf today 9 holes, went home had a sudden onset of right lower extremity swelling, above his knee with some numbness and tingling and some pain. Called 911 however by the time they got there all the symptoms had completely resolved. Decided to drive himself to the emergency room department for further evaluation. His primary care doctor suggested that he have further testing to evaluate for any further clot formation, currently at this time the patient's exam is negative, he has not tachypneic, he has not tachycardic, he does not have a fever, is not hypotensive. He has no signs or symptoms concern for pulmonary embolism. He has no chest pain, no shortness of breath. Patient is currently on DVT prophylaxis and currently on Eliquis taking 5 mg twice a day. His ultrasound shows that actually his thrombus burden has improved since his last ultrasound. Reassurance to the patient that his thrombus burden has improved Encouraged him to follow up with his primary care doctor return to the emergency department as needed. I am unfortunately unable to tell him exactly what happened today. Reassurance that his DVT is improving continue with his current therapy follow up with his primary care doctor return to the emergency department needed Differential diagnosis improvement of his current DVT Discharge Plan Departure Patient Disposition: Home Clinical Impression: DVT (deep venous thrombosis) Qualifiers: DVT location: lower extremity Affected thrombotic vein of extremity: unspecified vein of extremity Chronicity: unspecified Laterality: right Qualified Code(s): I82.401 - Acute embolism and thrombosis of unspecified deep veins of right lower extremity Activity Restrictions/Additional Instructions: Continue DVT however per the sonographic today it actually appears if the deep vein thrombosis burden is actually improving so the Eliquis actually is improving and removing the clot. So I am unable to tell you exactly what happened today but the scan that was read today by the radiologist shows that the clot that you previously had is actually improving. I would continue the Eliquis. I would make an appointment to follow up with Dr. Chung. I would return to the emergency room department as needed. Prescriptions: No Action apixaban 5 mg tablet 5 mg PO BID Qty: 180 1RF Rx Instructions: take twice a day do not take baby aspirin allopurinol 300 mg tablet 300 mg PO DAILY Qty: 90 1RF vitamin B complex [B Complex-Vitamin B12] Tablet 1 tab PO DAILY cholecalciferol (vitamin D3) PO calcium carbonate [Calcium 600] 600 mg calcium (1,500 mg) tablet 600 mg PO DAILY Magnesium Complex 300 mg magnesium tablet PO colchicine 0.6 mg tablet 0.6 mg PO BID PRN (Reason: Gout attack) Qty: 30 1RF Rx Instructions: Take for no more than 3 days in a row finasteride 5 mg tablet 5 mg PO DAILY Qty: 90 3RF diphenhydramine-acetaminophen [Tylenol PM Extra Strength] 25-500 mg tablet 2 tab PO DAILY Eliquis DVT-PE Treat 30D Start 5 mg (74 tabs) tablets,dose pack See Rx Instructions .ROUTE .COMPLEX Qty: 74 0RF Rx Instructions: orally per package directions gabapentin 100 mg capsule 100 mg PO .COMPLEX Qty: 90 2RF Rx Instructions: 1 PO QHS x3 days If tolerated, 1 PO BID x3 days If tolerated, 1 PO TID Referrals: Kailash Chung DO [Primary Care Provider] - Stand Alone Forms: Patient Portal/API ED Sign-out <Judith Kumar MD - Last Filed: 05/19/24 18:57> Cosign ED Attending Cosignature Attestation: I was immediately available in the department for consultation throughout this patient's visit. Judith Kumar MD
[2024-05-19 18:18] VITALS: BP 124/60; PULSE 59; RESP 18; O2SAT 98
== END 2024-05-19 18:20 | disposition home or self-care (01) ==
PROVIDERS: Emergency Provider Physician Assistant; Family Provider Family Medicine; PCP Family Medicine
DX: I82.401 Acute embolism and thrombosis of unspecified deep veins of right lower extremity (principal); Z79.01 Long term (current) use of anticoagulants
CPT/HCPCS: 93971; 99281; 99283

== ENCOUNTER → 2024-05-30 08:21 | Outpatient (CLI) | payer MEDICARE, SELFPAY ==
[2024-05-30 09:57] LABS: Alanine Aminotransferase 23 IU/L (<50); Albumin 3.9 g/dL (3.5-5.0); Albumin Globulin Ratio 1.2 (1.0-2.8); Alkaline Phosphatase 55 U/L (38-126); Aspartate Aminotransferase 38 IU/L (17-59); BUN Creatinine Ratio 20.8 (6-22); Bilirubin Total 0.7 mg/dL (0.2-1.3); Blood Urea Nitrogen 30 mg/dL (9-20); Calcium 9.4 mg/dL (8.4-10.2); Carbon Dioxide 28 mmol/L (22-32); Chloride 104 mmol/L (98-107); Cholesterol 242 mg/dL (140-199); Estimated Glomerular Filt Rate 50 mL/min (>60); Globulin 3.3 g/dL (1.7-4.1); Glucose 104 mg/dL (80-110); HDL Cholesterol 87 mg/dL (40-60); HEMOLYSIS < 15 (0-50); LDL Cholesterol Calculated 134 mg/dL (<100); Potassium 4.8 mmol/L (3.4-5.1); Sodium 136 mmol/L (137-145); Total Protein 7.2 g/dL (6.3-8.2); Triglycerides 104 mg/dL (35-150)
== END ==
PROVIDERS: Family Provider Family Medicine; PCP Family Medicine; Referring Provider Family Medicine; Visit Provider Family Medicine
DX: E78.2 Mixed hyperlipidemia (principal); Z79.899 Other long term (current) drug therapy; N18.9 Chronic kidney disease, unspecified; I82.411 Acute embolism and thrombosis of right femoral vein
CPT/HCPCS: 36415; 80053; 80061

== ENCOUNTER → 2024-11-29 11:42 | Outpatient (CLI) | payer MEDICARE, SELFPAY ==
[2024-11-29 13:09] LABS: Add Manual Diff / Slide Review NO; Basophils Absolute Auto 100 /uL (0-100); Basophils Percent Auto 0.7 % (0-2); Eosinophils Absolute Auto 300 /uL (0-450); Eosinophils Percent Auto 3.9 % (2-4); Hematocrit 43.8 % (41-53); Hemoglobin 14.6 g/dL (13.5-17.5); Lymphocytes Absolute Auto 2200 /uL (1100-4500); Lymphocytes Percent Auto 32.6 % (25-40); Mean Corpuscular HGB Conc 33.3 % (30-36); Mean Corpuscular Hemoglobin 32.8 PG (26-34); Mean Corpuscular Volume 98.5 fL (80-100); Monocytes Absolute Auto 500 /uL (0-900); Monocytes Percent Auto 7.8 % (3-14); Neutrophils Absolute Auto 3700 /uL (1500-7000); Platelet Count 216 X10^3/uL (150-400); Red Blood Cell Count 4.45 X10^6/uL (4.5-5.9); Red Cell Distribution Width 15.8 % (11.6-14.8); White Blood Cell Count 6.7 X10^3/uL (4.5-11.0)
[2024-11-29 13:34] LABS: Alanine Aminotransferase 34 IU/L (<50); Albumin 3.8 g/dL (3.5-5.0); Albumin Globulin Ratio 1.2 (1.0-2.8); Alkaline Phosphatase 52 U/L (38-126); Aspartate Aminotransferase 59 IU/L (17-59); BUN Creatinine Ratio 19.5 (6-22); Bilirubin Total 0.8 mg/dL (0.2-1.3); Blood Urea Nitrogen 24 mg/dL (9-20); Calcium 9.1 mg/dL (8.4-10.2); Carbon Dioxide 26 mmol/L (22-32); Chloride 105 mmol/L (98-107); Cholesterol 234 mg/dL (140-199); Estimated Glomerular Filt Rate > 60 mL/min (>60); Globulin 3.3 g/dL (1.7-4.1); Glucose 93 mg/dL (70-99); HEMOLYSIS < 15 (0-50); Potassium 4.7 mmol/L (3.4-5.1); Sodium 135 mmol/L (137-145); Total Protein 7.1 g/dL (6.3-8.2); Triglycerides 69 mg/dL (35-150)
[2024-11-29 13:45] LABS: HDL Cholesterol 120 mg/dL (40-60); LDL Cholesterol Calculated 100 mg/dL (<100)
[2024-11-29 14:04] LABS: Prostate Specific Antigen Scrn 2.17 ng/mL (0.1-4.0)
[2024-11-29 14:07] LABS: TSH w/ Reflex to FT4 3.32 uIU/mL (0.47-4.68)
== END ==
LOC: LAB 11:44
PROVIDERS: Family Provider Family Medicine; PCP Family Medicine; Referring Provider Family Medicine; Visit Provider Family Medicine
DX: E78.2 Mixed hyperlipidemia (principal); Z12.5 Encounter for screening for malignant neoplasm of prostate; N18.2 Chronic kidney disease, stage 2 (mild)
CPT/HCPCS: 36415; 80053; 80061; 84443; 85025; G0103

== ENCOUNTER → 2025-06-01 10:41 | Outpatient (CLI) | payer MEDICARE, SELFPAY ==
[2025-06-01 12:56] LABS: Alanine Aminotransferase 24 IU/L (<50); Albumin 3.7 g/dL (3.5-5.0); Albumin Globulin Ratio 1.1 (1.0-2.8); Alkaline Phosphatase 58 U/L (38-126); Blood Urea Nitrogen 26 mg/dL (9-20); Calcium 9.2 mg/dL (8.4-10.2); Carbon Dioxide 26 mmol/L (22-32); Chloride 104 mmol/L (98-107); Estimated Glomerular Filt Rate 53 mL/min (>60); Globulin 3.4 g/dL (1.7-4.1); Glucose 95 mg/dL (70-99); HEMOLYSIS < 15 (0-50); Potassium 4.7 mmol/L (3.4-5.1); Sodium 137 mmol/L (137-145); Total Protein 7.1 g/dL (6.3-8.2); Uric Acid 5.3 mg/dL (3.5-8.5)
== END ==
PROVIDERS: Family Provider Family Medicine; PCP Family Medicine; Referring Provider Family Medicine; Visit Provider Family Medicine
DX: Z00.00 Encounter for general adult medical examination without abnormal findings (principal); Z86.718 Personal history of other venous thrombosis and embolism
CPT/HCPCS: 36415; 80053; 84550

== ENCOUNTER → 2025-06-08 09:59 | Outpatient (CLI) | payer MEDICARE, SELFPAY ==
--- NOTE | 2025-06-08 10:00 | DI.NM.S_ITS ---
PROCEDURE: NM EXERCISE TREADMILL NON NUC COMPARISON: None. INDICATIONS: screening FINDINGS: Patient exercised per the standard Delta protocol. Total exercise time was 8 minutes and 9 seconds. Test was terminated secondary to fatigue. Maximal heart rate attained is 138 bpm which is 97% of maximum predicted heart rate. Maximum blood pressure was 120/[place] [address]. ANAY -42%. 8.9 METS. No ischemic changes noted. Occasional PVCs noted at rest. The PVCs resolved during exercise. PACs were noted in recovery. However 2 episodes of nonsustained ventricular tachycardia lasting 5 beats and 3 beats respectively were noted at 1 minute and 35 seconds into recovery. No chest pains voiced. Normal heart rate but blunted blood pressure response to exercise. IMPRESSION: 1. Positive exercise treadmill stress test for ischemia due to presence of nonsustained ventricular tachycardia and blunted blood pressure response to exercise. 2. Very good exercise capacity. Dictated by: Josue Pat M.D. on 06/08/2025 at 16:57 Approved by: Josue Pat M.D. on 06/08/2025 at 17:03
== END ==
PROVIDERS: Family Provider Family Medicine; PCP Family Medicine; Referring Provider Family Medicine; Visit Provider Family Medicine
DX: R94.39 Abnormal result of other cardiovascular function study (principal); I47.20 Ventricular tachycardia, unspecified; R07.9 Chest pain, unspecified; R68.89 Other general symptoms and signs
CPT/HCPCS: 93017